=== PATIENT | female | born 1965 | race African-American/Black ===

== ENCOUNTER 2018-09-22 10:59 | Emergency (ER) | payer OTHER ==
[~2018-09-22] VITALS: Ht 167.6 cm; Wt 95.3 kg
[~2018-09-22 10:59] MED LIST: NORCO 5-325 TA1 EACH PO; NORFLEX100 MG PO; TRAMADOL 50 MG50 MG PO; XANAX 0.5 MG0.5 MG PO
[2018-09-22] MEDS ORDERED: WELLBUTRIN 100100 MG PO (11:02)
[2018-09-22] MEDS ORDERED: AJOVY225 MG/1.5 SUBQ (11:02)
[2018-09-22] MEDS ORDERED: TOPAMAX50 MG PO (11:03)
[2018-09-22] MEDS ORDERED: NORVASC10 MG PO (11:03)
[2018-09-22] MEDS ORDERED: PRAVACHOL20 MG PO (11:04)
[2018-09-22] MEDS ORDERED: TOPAMAX100 MG PO (11:04)
[2018-09-22] MEDS ORDERED: IBUPROFEN 600600 M1 PO (12:15)
[2018-09-22 12:35] VITALS: BP 145/88
== END 2018-09-22 12:35 | disposition home or self-care (01) ==
LOC: ER 10:59
DX: S46.811A Strain of other muscles, fascia and tendons at shoulder and upper arm level, right arm, initial encounter (principal); S96.811A Strain of other specified muscles and tendons at ankle and foot level, right foot, initial encounter; K21.9 Gastro-esophageal reflux disease without esophagitis; G43.909 Migraine, unspecified, not intractable, without status migrainosus; M17.0 Bilateral primary osteoarthritis of knee; Z91.041 Radiographic dye allergy status; Z88.6 Allergy status to analgesic agent; Z90.710 Acquired absence of both cervix and uterus; Z90.721 Acquired absence of ovaries, unilateral; W00.0XXA Fall on same level due to ice and snow, initial encounter; Y92.89 Other specified places as the place of occurrence of the external cause; Y93.89 Activity, other specified; Y99.8 Other external cause status